=== PATIENT | female | born 1975 | race Two or more races ===

== ENCOUNTER 2017-01-01 01:17 | Emergency (ER) | payer OTHER ==
[2017-01-01] MEDS ORDERED: Aspirin Low Dose CHEW TAB* 81 MG PO ONE (01:59)
[2017-01-01 02:30] LABS: Hematocrit 36 % (35-47); Hemoglobin 11.8 g/dl (12.0-16.0); Mean Corpuscular HGB Conc 33 g/dl (31-36); Mean Corpuscular Hemoglobin 26 pg (27-31); Mean Corpuscular Volume 81 fL (80-97); Mean Platelet Volume 8 um3 (7.4-10.4); Red Blood Count 4.49 10^6/ul (4.0-5.4); Red Cell Distribution Width 14 % (10.5-15); White Blood Count 7.6 10^3/ul (3.5-10.8)
--- NOTE | 2017-01-01 02:38 | ED ---
Apurva Bear Erika, scribed for Rick Burgos MD on 01/01/17 at 0205 . HPI Chest Pain - HPI Summary HPI Summary: Patient is a 41-year-old female presenting to the ED with a CC of chest pain. Patient reports that she developed chest pain the morning of 12/31/2016 around 10:00 and has been constant since then. Pain is located left anterior and tonight started radiating to the left back and arm. Pain was slightly worsening tonight, and patient was unable to sleep so she came to the ED. Pain is not aggravated by movement or deep breathing. Pain is alleviated by putting pressure on her chest. Pt did not take any pain medication. Associated symptoms include nausea. Pt reports she has had "gas pains" in the past, but they are always R-sided. Hx thyroid disease. Pt most recently saw her PCP 1 month ago. - History of Current Complaint Chief Complaint: EDChestPainROMI Time Seen by Provider: 01/01/17 01:53 Hx Obtained From: Patient Onset/Duration: Started Days Ago - 1 day, Atraumatic, Still Present, Worse Since - tonight Timing: Constant Initial Severity: Mild Current Severity: Moderate Pain Intensity: 8 Pain Scale Used: 0-10 Numeric Chest Pain Location: Left Anterior Chest Pain Radiates: Yes Chest Pain Radiates To:: Back - L, Arm - L Aggravating Factor(s): Nothing Alleviating Factor(s): Other: - pushing on chest Associated Signs and Symptoms: Positive: Nausea - Allergy/Home Medications Allergies/Adverse Reactions: Allergies Allergy/AdvReac Type Severity Reaction Status Date / Time No Known Allergies Allergy Verified 09/01/16 19:52 PMH/Surg Hx/FS Hx/Imm Hx Endocrine/Hematology History: Reports: Hx Thyroid Disease Musculoskeletal History: Reports: Hx Back Problems Infectious Disease History: No Infectious Disease History: Denies: Traveled Outside the [place] in Last 30 Days - Family History Known Family History: Positive: Hypertension, Diabetes - Social History Alcohol Use: None Hx Substance Use: No Substance Use Type: Reports: None Hx Tobacco Use: No Smoking Status (MU): Never Smoked Tobacco Review of Systems Positive: Chest Pain Positive: Nausea All Other Systems Reviewed And Are Negative: Yes Physical Exam Triage Information Reviewed: Yes Vital Signs On Initial Exam: Initial Vitals Temp Pulse Resp BP Pulse Ox 98.0 F 71 16 114/71 100 01/01/17 01:25 01/01/17 01:25 01/01/17 01:25 01/01/17 01:25 01/01/17 01:25 Vital Signs Reviewed: Yes Appearance: Positive: Well-Appearing, No Pain Distress Skin: Positive: Warm Head/Face: Positive: Normal Head/Face Inspection Eyes: Positive: DANIEL ENT: Positive: Hearing grossly normal Neck: Positive: Supple Respiratory/Lung Sounds: Positive: Clear to Auscultation, Breath Sounds Present Cardiovascular: Positive: RRR Abdomen Description: Positive: Nontender, No Organomegaly, Soft Bowel Sounds: Positive: Present Musculoskeletal: Positive: Strength/ROM Intact Neurological: Positive: Sensory/Motor Intact, Alert, Oriented to Person Place, Time, Normal Gait Psychiatric: Positive: Affect/Mood Appropriate Diagnostics - Vital Signs Vital Signs Temp Pulse Resp BP Pulse Ox 01/01/17 01:25 98.0 F 71 16 114/71 100 - Laboratory Lab Results: Lab Results 01/01/17 Range/Units 02:05 WBC 7.6 (3.5-10.8) 10^3/ul RBC 4.49 (4.0-5.4) 10^6/ul Hgb 11.8 L (12.0-16.0) g/dl Hct 36 (35-47) % MCV 81 (80-97) fL MCH 26 L (27-31) pg MCHC 33 (31-36) g/dl RDW 14 (10.5-15) % Plt Count 250 (150-450) 10^3/ul MPV 8 (7.4-10.4) um3 Neut % (Auto) 53.6 (38-83) % Lymph % (Auto) 34.9 (25-47) % [place] % (Auto) 5.7 (1-9) % Eos % (Auto) 5.3 (0-6) % Baso % (Auto) 0.5 (0-2) % Absolute Neuts (auto) 4.1 (1.5-7.7) 10^3/ul Absolute Lymphs (auto) 2.7 (1.0-4.8) 10^3/ul Absolute Monos (auto) 0.4 (0-0.8) 10^3/ul Absolute Eos (auto) 0.4 (0-0.6) 10^3/ul Absolute Basos (auto) 0 (0-0.2) 10^3/ul Absolute Nucleated RBC 0.01 10^3/ul Nucleated RBC % 0.1 Result Diagrams: 01/01/17 02:05 01/01/17 02:05 Lab Statement: Any lab studies that have been ordered have been reviewed, and results considered in the medical decision making process. - Radiology CXR Xray Interpretation: No Acute Changes Radiology Interpretation Completed By: ED Physician - EKG 01:34 Cardiac Rate: NL - at 74 bpm EKG Rhythm: Sinus Rhythm Re-Evaluation - Re-Evaluation First Eval Re-Evaluation Time: 03:07 Change: Improved Comment: Discussed EKG, lab, and imaging results. Pt will be discharged home Chest Pain Course/Dx - Course Assessment/Plan: A 41 y/o F presents to the ED with a CC of left anterior chest pain radiating to the left back and left arm. Pain is slightly alleviated by pushing on her chest. EKG shows NSR. CXR shows no acute cardiopulmonary disease. Troponin is 0.00. Patient will be discharged home with follow up from her PCP. - Diagnoses Provider Diagnoses: Chest pain Discharge - Discharge Plan Condition: Stable Disposition: HOME Patient Education Materials: Chest Pain (ED) Referrals: Sylvia Varela MD [Primary Care Provider] - Additional Instructions: Please follow up with your PCP The documentation as recorded by the Apurva bateman Erika accurately reflects the service I personally performed and the decisions made by me, Rick Burgos MD.
[2017-01-01 02:45] LABS: ALT 10 U/L (7-52); AST 13 U/L (13-39); Albumin 3.9 g/dL (3.2-5.2); Alkaline Phosphatase 49 U/L (34-104); Anion Gap 5 mmol/L (2-11); BUN/Creatinine Ratio 15.4 (8-20); Blood Urea Nitrogen 12 mg/dL (6-24); CO2 Carbon Dioxide 28 mmol/L (22-32); Calcium 9.1 mg/dL (8.6-10.3); Chloride 103 mmol/L (101-111); EGFR African American 105.7 (>60); EGFR Non-African American 82.2 (>60); Glucose 125 mg/dL (70-100); Potassium 3.8 mmol/L (3.5-5.0); Sodium 136 mmol/L (133-145); Total Protein 6.9 g/dL (6.4-8.9)
[2017-01-01 03:09] VITALS: BP 105/91
--- NOTE | 2017-01-01 07:55 | RAD ---
INDICATION: Chest pain. COMPARISON: There are no prior studies available for comparison. TECHNIQUE: Dual-energy PA and lateral views of the chest were obtained. FINDINGS: The heart is within normal limits in size. Mediastinal and hilar contours appear within normal limits. The lungs are clear. No pneumothorax or pleural effusion is seen. IMPRESSION: NO EVIDENCE FOR ACTIVE CARDIOPULMONARY DISEASE.
== END 2017-01-01 03:12 | disposition home or self-care (01) ==
LOC: ED 01:17
DX: R07.9 Chest pain, unspecified (principal)
CPT/HCPCS: 36415; 71020; 80053; 83735; 84484; 84702; 85025; 93005; 99282; A9270-GY